=== PATIENT | male | born 1990 | race Hispanic/Latino ===

== ENCOUNTER 2020-03-06 08:49 | Emergency (ER) | payer SELFPAY ==
[2020-03-06 09:37] LABS: CARBON DIOXIDE 30 mmol/L (21-32); CHLORIDE 105 mmol/L (101-111); CREATININE 0.9 mg/dL (0.5-1.5); GLOMERULAR FILTR. RATE CALC 105 mL/min (>60); GLUCOSE,RANDOM 100 mg/dL (70-105); POTASSIUM 4.7 mmol/L (3.5-5.1); SODIUM SERUM 139 mmol/L (136-145); UREA NITROGEN, BLOOD 12 mg/dL (7-18)
[2020-03-06 09:40] LABS: BASOPHILS % (AUTO) 0.6 % (0.0-5.0); EOSINOPHILS % (AUTO) 1.2 % (0.0-8.0); HEMATOCRIT 41.9 % (42-54); LYMPHOCYTES % (AUTO) 23.4 % (21.0-51.0); MEAN CORPUSCULAR HEMOGLOBIN 29.1 pg (27.0-33.0); MEAN CORPUSCULAR HGB CONC 33.4 g/dL (32.0-36.0); MEAN CORPUSCULAR VOLUME 87.1 fL (79-99); MONOCYTES % (AUTO) 6.7 % (3.0-13.0); NEUTROPHILS % (AUTO) 67.9 % (40.0-77.0); PLATELET COUNT (AUTO) 285 K/uL (130-400); RED BLOOD CELL COUNT(AUTO) 4.81 MIL/uL (4.50-6.20); RED CELL DISTRIBUTION WIDTH 13.2 % (11.0-15.5); WHITE BLOOD COUNT (AUTO) 8.1 K/uL (4.8-10.8)
[2020-03-06 09:41] LABS: ALANINE AMINOTRANSFERASE 45 U/L (12-78); ALBUMIN 3.8 g/dL (3.5-5.0); ASPARTATE AMINOTRANSFERASE 33 U/L (10-37); BILIRUBIN,DIRECT < 0.1 mg/dL (0.0-0.3); BILIRUBIN,TOTAL 0.2 mg/dL (0.2-1.0); CREATINE KINASE, TOTAL 163 U/L (21-232); TOTAL PROTEIN, SERUM 6.9 g/dL (6.0-8.3)
== END 2020-03-06 10:40 | disposition home or self-care (01) ==
LOC: EDH 08:49
DX: G40.89 Other seizures (principal)
CPT/HCPCS: 36415; 80048; 80076; 82550; 85025; 93005

== ENCOUNTER 2021-02-28 11:18 | Emergency (ER) | payer SELFPAY ==
[2021-02-28] MEDS ORDERED: IBUPROFEN 600 MG TABLET ONE (13:36)
[2021-02-28 14:05] LABS: RAPID GROUP A STREP NEGATIVE (NEGATIVE)
[2021-02-28] MEDS ORDERED: CEFTRIAXONE SODIUM 1 GM ONE (14:36)
[2021-02-28] MEDS ORDERED: LIDOCAINE HCL-MPF 1% 2ML VIAL ONE (14:36)
== END 2021-02-28 14:57 | disposition home or self-care (01) ==
LOC: EDH 11:18
DX: J18.9 Pneumonia, unspecified organism (principal); Z20.822 Contact with and (suspected) exposure to COVID-19; G40.909 Epilepsy, unspecified, not intractable, without status epilepticus
CPT/HCPCS: 71045; 87426; 87804 ×2; 87880; 96372; 99284; J0696; J3490; U0003

== ENCOUNTER 2021-03-05 15:15 | Emergency (ER) | payer SELFPAY ==
[2021-03-05 16:18] LABS: BASOPHILS % (AUTO) 0.6 % (0.0-5.0); EOSINOPHILS % (AUTO) 1.5 % (0.0-8.0); HEMATOCRIT 42.5 % (42-54); LYMPHOCYTES % (AUTO) 32.3 % (21.0-51.0); MEAN CORPUSCULAR HEMOGLOBIN 28.5 pg (27.0-33.0); MEAN CORPUSCULAR HGB CONC 34.1 g/dL (32.0-36.0); MEAN CORPUSCULAR VOLUME 83.7 fL (79-99); MONOCYTES % (AUTO) 13.4 % (3.0-13.0); NEUTROPHILS % (AUTO) 51.8 % (40.0-77.0); PLATELET COUNT (AUTO) 373 K/uL (130-400); RED BLOOD CELL COUNT(AUTO) 5.08 MIL/uL (4.50-6.20); RED CELL DISTRIBUTION WIDTH 12.5 % (11.0-15.5); WHITE BLOOD COUNT (AUTO) 8.5 K/uL (4.8-10.8)
[2021-03-05 16:30] LABS: CREATININE 0.8 mg/dL (0.5-1.5)
[2021-03-05 16:33] LABS: ALBUMIN 3.1 g/dL (3.5-5.0); BILIRUBIN,TOTAL 0.2 mg/dL (0.2-1.0); TOTAL PROTEIN, SERUM 8.6 g/dL (6.0-8.3)
[2021-03-05] MEDS ORDERED: CEFTRIAXONE SODIUM 1 GM ONE ×2 (18:14→18:33)
[2021-03-05] MEDS ORDERED: AZITHROMYCIN 250 MG TABLET PO ONE (18:15)
[2021-03-05] MEDS ORDERED: LIDOCAINE HCL-MPF 1% 2ML VIAL ONE (18:33)
== END 2021-03-05 19:07 | disposition home or self-care (01) ==
LOC: EDH 15:15
DX: J18.8 Other pneumonia, unspecified organism (principal); Z72.0 Tobacco use
CPT/HCPCS: 36415; 71045; 80053; 82550; 83605; 85025; 87040 ×2; 96372; 99284; J0696 ×2; J3490